=== PATIENT | male | born 2000 | race Caucasian/White ===

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

== ENCOUNTER 2022-02-23 19:15 | Emergency (ER) | payer MEDICAID, SELFPAY ==
--- NOTE | ~2022-02-23 | XR_ITS ---
EXAMINATION: XR CHEST CLINICAL INFORMATION: Cough, fever COMPARISON: None TECHNIQUE: Frontal view of the chest was obtained. FINDINGS: No significant abnormality is noted involving the heart, lungs, mediastinum, bony thorax or soft tissues. XR/XR chest 1V IMPRESSION: Unremarkable examination.
[2022-02-23 19:29] VITALS: BP 134/70; PULSE 114; RESP 20; TEMP 39.2; O2SAT 95; BMI 30.7
--- NOTE | 2022-02-23 19:31 | ED.FEVER ---
HPI - Fever General Chief Complaint: Upper Respiratory Symptoms <IZABEL Biswas - Last Filed: 02/23/22 19:33> Stated Complaint: cough <IZABEL Biswas - Last Filed: 02/23/22 19:33> Time Seen by Provider: 02/23/22 19:54 <IZABEL Biswas - Last Filed: 02/23/22 19:33> Related Data Home Medications: Previous Rx's Medication Instructions Recorded ibuprofen 600 mg tablet 600 mg PO TID PRN fever #14 tabs 02/23/22 oseltamivir 75 mg capsule (Tamiflu) 75 mg PO DAILY #10 caps 02/23/22 <IZABEL Biswas - Last Filed: 02/23/22 19:33> Allergies/Adverse Reactions: Allergies Allergy/AdvReac Type Severity Reaction Status Date / Time No Known Allergies Allergy Verified 02/23/22 19:30 <IZABEL Biswas - Last Filed: 02/23/22 19:33> [facility] Social History Social History: Social History Advance Directives: No Advance Directives Information Provided: No <IZABEL Biswas - Last Filed: 02/23/22 19:33> Physical Exam Vital Signs: Vital Signs: Last Vital Signs Temp 102.5 F H 02/23/22 19:29 Pulse 114 H 02/23/22 19:29 Resp 20 02/23/22 19:29 BP 134/70 02/23/22 19:29 Pulse Ox 95 02/23/22 19:29 O2 Del Method 02/23/22 19:29 BMI result Body Mass Index 30.7 <IZABEL Biswas - Last Filed: 02/23/22 19:33> Vital Signs: Last Vital Signs Temp 102.5 F H 02/23/22 19:29 Pulse 114 H 02/23/22 19:29 Resp 20 02/23/22 19:29 BP 134/70 02/23/22 19:29 Pulse Ox 95 02/23/22 19:29 O2 Del Method 02/23/22 19:29 BMI result Body Mass Index 30.7 <Andra Jacobs MD - Last Filed: 02/23/22 21:50> Course Course Course Narrative: 19:31 - RME - 21 yo healthy male presents to the ER for evaluation of fever 101.6, nasal congestion, sore throat and cough that started today. No known sick contacts. UTD on vaccinations. Took tylenol earlier. Febrile to 102.5 in triage, nontoxic appearing. Will check viral swab and strep. motrin ordered. <IZABEL Biswas - Last Filed: 02/23/22 19:33> 19:31 - RME - 21 yo healthy male presents to the ER for evaluation of fever 101.6, nasal congestion, sore throat and cough that started today. No known sick contacts. UTD on vaccinations. Took tylenol earlier. Febrile to 102.5 in triage, nontoxic appearing. Will check viral swab and strep. motrin ordered. Patient tested positive for influenza A. Patient is within the window of treatment, less than 24 hours of symptoms. Patient is a good candidate for Tamiflu. <Andra Jacobs MD - Last Filed: 02/23/22 21:50> Medications Administered Discontinued Medications Generic Name Dose Route Start Last Admin Trade Name Freq PRN Reason Stop Dose Admin Ibuprofen 600 mg 02/23/22 19:31 02/23/22 20:44 Ibuprofen 600 Mg Tablet PO 02/23/22 19:32 600 mg ONCE ONE Administration <IZABEL Biswas - Last Filed: 02/23/22 19:33> Medications Administered Discontinued Medications Generic Name Dose Route Start Last Admin Trade Name Freq PRN Reason Stop Dose Admin Ibuprofen 600 mg 02/23/22 19:31 02/23/22 20:44 Ibuprofen 600 Mg Tablet PO 02/23/22 19:32 600 mg ONCE ONE Administration <Andra Jacobs MD - Last Filed: 02/23/22 21:50> Medical Decision Making Differential Diagnosis Differential Diagnoses: The differential diagnosis associated with the presentation includes (COVID, influenza, RSV, pneumonia) <Andra Jacobs MD - Last Filed: 02/23/22 21:50> Lab Data MDM Lab Attestation statement: I reviewed the patient's lab results. <Andra Jacobs MD - Last Filed: 02/23/22 21:50> Labs: Lab Results 02/23/22 02/23/22 Range/Units 19:33 19:33 Influenza Type A (PCR) POSITIVE A (Negative) Influenza Type B (PCR) NEGATIVE (Negative) RSV RNA Qual (PCR) NEGATIVE (Negative) SARS-CoV-2 RNA (RT-PCR) NEGATIVE (Negative) S. pyogenes GrpA GAVINO Negative (Negative) <IZABEL Biswas - Last Filed: 02/23/22 19:33> Lab Results 02/23/22 02/23/22 Range/Units 19:33 19:33 Influenza Type A (PCR) POSITIVE A (Negative) Influenza Type B (PCR) NEGATIVE (Negative) RSV RNA Qual (PCR) NEGATIVE (Negative) SARS-CoV-2 RNA (RT-PCR) NEGATIVE (Negative) S. pyogenes GrpA GAVINO Negative (Negative) <Andra Jacobs MD - Last Filed: 02/23/22 21:50> Discharge Plan Discharge Clinical Impression: Influenza A <IZABEL Biswas - Last Filed: 02/23/22 19:33> Patient Disposition: Home, Self-Care <IZABEL Biswas - Last Filed: 02/23/22 19:33> Instructions: Influenza (ED) <IZABEL Biswas - Last Filed: 02/23/22 19:33> Additional Instructions: Please follow-up with your primary care physician tomorrow. If you have any worsening or new symptoms, please return to the emergency room or call 911 <IZABEL Biswas - Last Filed: 02/23/22 19:33> Prescriptions: New oseltamivir [Tamiflu] 75 mg capsule 75 mg PO DAILY Qty: 10 0RF ibuprofen 600 mg tablet 600 mg PO TID PRN (Reason: fever) Qty: 14 0RF <IZABEL Biswas - Last Filed: 02/23/22 19:33> Stand Alone Forms: Work/School Release <IZABEL Biswas - Last Filed: 02/23/22 19:33>
[2022-02-23 20:11] LABS: Strep A Nucleic Acid Negative (Negative)
[2022-02-23 20:20] LABS: Influenza A PCR POSITIVE (Negative); Influenza B PCR NEGATIVE (Negative); Resp Syncy Virus RNA Qual PCR NEGATIVE (Negative); SARS COV2 PCR INHOUSE NEGATIVE (Negative)
[2022-02-23] MEDS: Ibuprofen 600 MG TABLET PO (20:44)
[2022-02-23 21:41] VITALS: TEMP 37.1
== END 2022-02-23 22:06 | disposition home or self-care (01) ==
PROVIDERS: Physician Assistant; Emergency Provider Emergency Medicine
DX: J10.1 Influenza due to other identified influenza virus with other respiratory manifestations (principal); R50.9 Fever, unspecified; R05.9 Cough, unspecified; Z20.822 Contact with and (suspected) exposure to COVID-19; Z79.899 Other long term (current) drug therapy
CPT/HCPCS: 0241U; 36415; 71045; 87651; 99283

== ENCOUNTER 2022-04-15 23:22 | Emergency (ER) | payer MEDICAID, SELFPAY ==
[2022-04-15 23:36] VITALS: BP 121/61; PULSE 64; RESP 16; TEMP 36.7; O2SAT 99; BMI 30.7
[2022-04-16 00:16] LABS: Hematocrit 46.3 % (42.0-52.0); Hemoglobin 15.6 g/dl (14.0-18.0); Mean Corpuscular HGB Conc 33.7 g/dl (31.0-36.0); Mean Corpuscular Hemoglobin 28.4 pg (27.0-33.0); Mean Corpuscular Volume 84.2 fL (80.0-98.0); Mean Platelet Volume 10.4 fL (9.4-12.4); Platelet Count 195 X10*3/uL (160-400); Red Cell Distribution Width 12.7 % (11.0-16.0); White Blood Count 7.2 X10*3/uL (4.8-10.8)
[2022-04-16 00:24] LABS: Lactic Acid 0.9 mmol/L (0.5-2.0)
[2022-04-16 00:28] LABS: Alanine Aminotransferase 60 U/L (0-40); Albumin Level 4.6 g/dL (3.5-5.0); Alkaline Phosphatase 53 U/L (39-117); Anion Gap 11 (12-20); Aspartate Amino Transferase 131 U/L (5-37); Bilirubin Total 0.8 mg/dL (0.0-1.0); Blood Urea Nitrogen 16 mg/dL (9-16); Calcium 9.7 mg/dL (8.4-10.2); Carbon Dioxide 28 mmol/L (22-29); Chloride 104 mmol/L (96-108); Creatinine Clr Calc Pharmacy 121.2; Estimated Glomerular Filt Rate > 60; Glucose Random 98 mg/dL (60-115); Sodium 139 mmol/L (135-145); Total Protein 7.3 g/dL (6.5-8.0)
--- NOTE | 2022-04-16 00:56 | ED.GENADULT ---
HPI - General Adult General Chief complaint: Animal Bite Stated complaint: spider bite Time Seen by Provider: 04/16/22 00:33 Source: patient Mode of arrival: ambulatory Limitations: no limitations History of Present Illness HPI narrative: Patient comes to the emergency room complaining of a spider bite to the left inner thigh 2 days ago. Patient states that over last 2 days, erythema has been getting bigger, more tender to palpation. Patient denies any fever chills. Patient states that initially when he noticed that his leg was erythematous, he tried poking and trying to drain any pus. However, nothing was expressed. Patient is unsure about his last tetanus shot. Patient denies IV drug abuse Related Data Previous Rx's Medication Instructions Recorded ibuprofen 600 mg tablet 600 mg PO TID PRN fever #14 tabs 02/23/22 oseltamivir 75 mg capsule (Tamiflu) 75 mg PO DAILY #10 caps 02/23/22 ibuprofen 400 mg tablet 400 mg PO Q8H PRN fever or pain 04/16/22 #20 tabs sulfamethoxazole 800 1 tab PO BID #14 tabs 04/16/22 mg-trimethoprim 160 mg tablet (Bactrim DS) Allergies Allergy/AdvReac Type Severity Reaction Status Date / Time No Known Allergies Allergy Verified 02/23/22 19:30 Review of Systems Review of Systems: Constitutional : No Weight loss, No Fever, No Chills, No Night Sweats, No Fatigue, No Malaise ENT/Mouth : No Hearing loss, No Ear Pain, No Nasal Congestion, No Sinus Pain, No Hoarseness, No sore throat, No Rhinorrhea, No Swallowing Difficulty Eyes: No Eye Pain, No Swelling, No Redness, No Foreign Body, No Discharge, No Vision Changes Cardiovascular : No Chest Pain, No SOB, No Dyspnea on Exertion, No Orthopnea, No Edema, No Palpitations Respiratory : No Cough, No Sputum, No Wheezing, No Smoke Exposure, No Dyspnea Gastrointestinal : No Nausea, No Vomiting, No Diarrhea, No Constipation, No abdominal Pain, No Hematochezia, No Melena Genitourinary : no irregular bleeding, No Dysuria, No Urinary Frequency, No Hematuria, No Urinary Incontinence, No Urgency, No Flank Pain, No Urinary Flow Changes, No Hesitancy Musculoskeletal : No joint pain, No Myalgias, No Joint Swelling Skin : Complaining of erythema/spider bite in the left inner thigh Neuro : No Weakness, No Numbness, No Paresthesias, No Loss of Consciousness, No Dizziness, No Headache Psych : No Anxiety/Panic, No Depression, No SI/HI/AH/VH, No Social Issues, Heme/Lymph: No Bruising, No Bleeding,No Lymphadenopathy Endocrine : No Polyuria, No Polydipsia, No Temperature Intolerance [facility] Social History Social History Advance Directives: No Physical Exam ED Vital Signs: Vital Signs - 24 hr 04/15/22 23:36 Temperature 98.0 F Pulse Rate 64 Respiratory Rate 16 Blood Pressure 121/61 Pulse Oximetry 99 Oxygen Delivery Method Room Air BMI result Body Mass Index 30.7 Const Other: Appearance: Alert. Oriented X3. No acute distress. Eyes: Pupils equal, round and reactive to light. ENT: Pharynx normal. Neck: Normal inspection. Neck supple. No lymph nodes noted. No crepitus CVS: Normal heart rate and rhythm. Pulses normal. Normal S1 and S2 Respiratory: No respiratory distress. Breath sounds normal. No Wheezing. No rales Abdomen: Soft and nontender. No rigidity. No distention. Skin: Skin warm and dry. In the left inner thigh, there is a 3 cm x 3 cm red plaque. Bedside ultrasound shows a small abscess approximately 0.5 cm deep Extremities: No lower extremity edema. No Lacerations. No Rash Neuro: Oriented X 3. No motor deficit. No sensory deficit. Moving all extremities. No slurred speech. CN 2 through 12 grossly intact Psych: calm, cooperative, normal affect Course Course Course Narrative: -I discussed the physical exam with the patient, patient agreeable to I&D. The skin over the central eschar is very soft, I was able to unroof it with a 16 gauge needle. Patient declined lidocaine for the procedure. After unroofing the lesion, approximately 1 mL of pus was expressed. -patient was given the 1st dose of Bactrim in the ED. -also, patient was given a Tdap booster Medical Decision Making Medical Decision Making [facility] Narrative: -patient's white blood cell count within normal limits. Lactic acid normal. Vitals are stable. Sepsis not suspected. -patient's AST and ALT are elevated, likely secondary to fatty liver. -alcoholism and IV drug abuse is not suspected Differential Diagnosis Differential Diagnoses: The differential diagnosis associated with the presentation includes (Abscess, cellulitis, insect bite) Lab Data [facility] Lab Attestation statement: I reviewed the patient's lab results. 04/16/22 00:05 04/16/22 00:05 Labs: Lab Results 04/16/22 04/16/22 04/16/22 Range/Units 00:05 00:05 00:05 WBC 7.2 (4.8-10.8) X10*3/uL RBC 5.50 (4.60-5.80) X10*6/uL Hgb 15.6 (14.0-18.0) g/dl Hct 46.3 (42.0-52.0) % MCV 84.2 (80.0-98.0) fL MCH 28.4 (27.0-33.0) pg MCHC 33.7 (31.0-36.0) g/dl RDW 12.7 (11.0-16.0) % Plt Count 195 (160-400) X10*3/uL MPV 10.4 (9.4-12.4) fL Absolute Nucleated RBC 0.000 (0.0-0.012) X10*3/uL Nucleated RBC % (auto) 0.0 (0.0-0.2) /100WBC Sodium 139 (135-145) mmol/L Potassium 4.0 (3.3-5.1) mmol/L Chloride 104 (96-108) mmol/L Carbon Dioxide 28 (22-29) mmol/L Anion Gap 11 L (12-20) BUN 16 (9-16) mg/dL Creatinine 1.16 (0.5-1.4) mg/dL Estim Creat Clear Calc 121.2 Estimated GFR > 60 Random Glucose 98 (60-115) mg/dL Lactic Acid 0.9 (0.5-2.0) mmol/L Calcium 9.7 (8.4-10.2) mg/dL Total Bilirubin 0.8 (0.0-1.0) mg/dL AST 131 H (5-37) U/L ALT 60 H (0-40) U/L Alkaline Phosphatase 53 (39-117) U/L Total Protein 7.3 (6.5-8.0) g/dL Albumin 4.6 (3.5-5.0) g/dL Discharge Plan Discharge Clinical Impression: Insect bite, Cellulitis and abscess of left lower extremity Patient Disposition: Home, Self-Care Instructions: Cellulitis (ED) Additional Instructions: Please follow-up with your primary care physician tomorrow. If you have any worsening or new symptoms, please return to the emergency room or call 911 Prescriptions: New sulfamethoxazole-trimethoprim [Bactrim DS] 800-160 mg tablet 1 tab PO BID Qty: 14 0RF ibuprofen 400 mg tablet 400 mg PO Q8H PRN (Reason: fever or pain) Qty: 20 0RF No Action oseltamivir [Tamiflu] 75 mg capsule 75 mg PO DAILY Qty: 10 0RF ibuprofen 600 mg tablet 600 mg PO TID PRN (Reason: fever) Qty: 14 0RF Stand Alone Forms: Work/School Release
[2022-04-16 01:46] VITALS: BP 125/54; PULSE 64; RESP 18; TEMP 36.7; O2SAT 100
[2022-04-16] MEDS: Sulfamethox/Trimeth 800/160 TABLET 1 TAB PO (01:59)
[2022-04-16] MEDS: Diphth,Pertus(ACell),Tet Adult 0.5 ML SYRINGE IM (02:00)
== END 2022-04-16 02:09 | disposition home or self-care (01) ==
PROVIDERS: Emergency Provider Emergency Medicine
DX: L03.116 Cellulitis of left lower limb (principal); L02.416 Cutaneous abscess of left lower limb; S70.362A Insect bite (nonvenomous), left thigh, initial encounter; W57.XXXA Bitten or stung by nonvenomous insect and other nonvenomous arthropods, initial encounter; Y93.9 Activity, unspecified; Y92.9 Unspecified place or not applicable; Y99.9 Unspecified external cause status
CPT/HCPCS: 36415; 80053; 83605; 85027; 87040; 90471; 90715; 99283; 99284

== ENCOUNTER 2022-04-16 16:57 | Emergency (ER) | payer MEDICAID, SELFPAY ==
[2022-04-16 17:01] VITALS: BP 128/65; PULSE 70; RESP 18; TEMP 36.8; O2SAT 99; BMI 33.3
--- NOTE | 2022-04-16 17:01 | ED.SKABFB ---
HPI - Skin/Abscess/Foreign Bdy General Chief complaint: Recheck/Abnormal Lab/Rx Stated complaint: seen 04/16 spider bite area is getting larger Time Seen by Provider: 04/16/22 17:02 Source: patient and family Mode of arrival: ambulatory Limitations: no limitations History of Present Illness HPI narrative: 22 yo male healthy here with concern for increasing redness outside of the marked line of the abscess he was seen 12hrs ago in this ER. Patient reports she received 1 dose of antibiotics last night in the emergency room and 1 this morning at 10:00. He is feeling overall improved. He denies any fevers. Related Data Previous Rx's Medication Instructions Recorded ibuprofen 600 mg tablet 600 mg PO TID PRN fever #14 tabs 02/23/22 oseltamivir 75 mg capsule (Tamiflu) 75 mg PO DAILY #10 caps 02/23/22 ibuprofen 400 mg tablet 400 mg PO Q8H PRN fever or pain 04/16/22 #20 tabs sulfamethoxazole 800 1 tab PO BID #14 tabs 04/16/22 mg-trimethoprim 160 mg tablet (Bactrim DS) Allergies Allergy/AdvReac Type Severity Reaction Status Date / Time No Known Allergies Allergy Verified 02/23/22 19:30 Review of Systems Review of Systems: Yes all other systems are reviewed and are negative Constitutional: Constitutional: Reports no additional constitutional complaints, Denies body ache(s), Denies chills, Denies fever(s), Denies headache(s) and Denies weakness Eyes: Eyes: Reports no additional eye complaints and Denies change in vision ENT: Reports system reviewed and no additional complaints, except as documented, Denies dizziness, Denies headache(s), Denies nasal congestion, Denies nasal discharge and Denies neck pain Cardiovascular: Cardiovascular: Reports no additional cardiovascular complaints, Denies chest pain, Denies leg edema and Denies dyspnea Respiratory: Respiratory: Reports no additional respiratory complaints, Denies cough and Denies dyspnea Gastrointestinal: Gastrointestinal: Reports no additional gastrointestinal complaints, Denies abdominal pain, Denies diarrhea, Denies nausea and Denies vomiting Genitourinary: Genitourinary: Denies urinary incontinence Musculoskeletal: Musculoskeletal: Reports no additional musculoskeletal complaints, Denies back pain, Denies arthralgias, Denies joint swelling, Denies neck pain, Denies numbness and Denies tingling Integumentary/Breasts: Skin/Breast: Reports system reviewed and no additional complaints, except as docu, Reports swelling, Reports erythema and Denies rash Neurologic: Reports system reviewed and no additional complaints, except as documented, Denies Abnormal speech present, Denies dizziness, Denies headache(s), Denies numbness, Denies tingling and Denies weakness PMFSH Past Medical History Attestation statement: The following information was validated with the patient. Source: old records reviewed and nursing notes reviewed Physical Exam Vital Signs: Vital Signs: Last Vital Signs Temp 98.3 F 04/16/22 17:01 Pulse 70 04/16/22 17:01 Resp 18 04/16/22 17:01 BP 128/65 04/16/22 17:01 Pulse Ox 99 04/16/22 17:01 O2 Del Method 04/16/22 17:01 BMI result Body Mass Index 33.3 Const: General: cooperative, healthy appearing, comfortable and no acute distress Orientation/consciousness: patient oriented x3 Limitations: no limitations HEENT: Head: Yes normal to inspection Ears: hearing grossly normal bilaterally General nose exam: Normal external nose present Face and sinus: Yes normal facial exam Mouth: Normal oral and palatal mucosa present Throat: Yes posterior oropharynx normal Eyes: General: appearance normal, both eyes and all related structures Pupils: Equal, round and reactive pupils present Neck: Neck: Yes normal visual inspection Chest: Chest palpation & inspection: normal inspection of the chest Resp: Effort & Inspection: normal respiratory effort Auscultation: clear to auscultation bilaterally Cardio: Rate: regular rate Rhythm: regular rhythm Peripheral pulses: Peripheral pulses 2+ throughout GI: Inspection: Yes normal to inspection Palpation (GI): Soft to palpation and nontender Auscultation: normal bowel sounds Back/Spine/Pelvis: Thoracic/Lumbar Spine: thoracic and lumbar spine normal to inspection Skin: General skin exam: no rashes or lesions noted Neuro: General: patient oriented x3, no focal motor deficits and normal sensation to monofilament Cranial nerves: Yes Equal, round and reactive pupils present Cognition (Neuro): normal cognition Speech: No Abnormal speech present Gait exam (Neuro): Normal gait present Motor exam (neuro): 5/5 motor strength present throughout Extrem: General: Yes normal to inspection Elbow/forearm/wrist images: 1. +circular area of erythema with a clear line surrounding it. There is one small area of redness which extends approximately 1 inch outside of the marked line Course Course Course Narrative: This is a rapid medical exam. Deferred additional HPI, ROS, PE to primary provider. Medical Decision Making Medical Decision Making [facility] Narrative: 22-year-old male here for wound check. Patient reports seen here yesterday and diagnosed with abscess and started on antibiotics. The area was marked with a skin marker and he is here because he is current certain there is a small area that is extending outside of the marked lines. Overall he is feeling much better and denies any fevers or chills. He has taken 2 doses of antibiotics total. On exam there is a area of redness to the medial left thigh the area is marked with a skin marker. There was a very small area that extends out from the marked line. This is quite minor. I explained this to the patient. Recommend he continue antibiotics, ibuprofen for pain, warm soaks. Reviewed worrisome signs and symptoms of when to return to the emergency room. Comfortable for discharge home Differential Diagnosis Differential Diagnoses: The differential diagnosis associated with the presentation includes Cellulitis Discharge Plan Discharge Clinical Impression: Insect bite, Cellulitis and abscess of left lower extremity Patient Disposition: Home, Self-Care Instructions: Cellulitis (ED) Additional Instructions: Continue your antibiotics warm compreses to the area return for fever >100.4, increasing redness/swelling Prescriptions: No Action oseltamivir [Tamiflu] 75 mg capsule 75 mg PO DAILY Qty: 10 0RF ibuprofen 600 mg tablet 600 mg PO TID PRN (Reason: fever) Qty: 14 0RF sulfamethoxazole-trimethoprim [Bactrim DS] 800-160 mg tablet 1 tab PO BID Qty: 14 0RF ibuprofen 400 mg tablet 400 mg PO Q8H PRN (Reason: fever or pain) Qty: 20 0RF Referrals: [facility] [Primary Care Provider] -
== END 2022-04-16 17:15 | disposition home or self-care (01) ==
PROVIDERS: Emergency Provider Emergency Medicine
DX: L03.116 Cellulitis of left lower limb (principal); L02.416 Cutaneous abscess of left lower limb; S70.362D Insect bite (nonvenomous), left thigh, subsequent encounter; W57.XXXD Bitten or stung by nonvenomous insect and other nonvenomous arthropods, subsequent encounter
CPT/HCPCS: 99282; 99284

== ENCOUNTER 2023-09-27 22:28 | Emergency (ER) | payer MEDICAID, SELFPAY ==
[2023-09-27 22:40] VITALS: BP 143/75; PULSE 99; RESP 18; TEMP 37; O2SAT 96; BMI 33.2
--- NOTE | 2023-09-27 23:14 | ED.GENADULT ---
HPI - General Adult General Chief complaint: Skin/Abscess/Foreign Body Stated complaint: ? spider bite right leg Time Seen by Provider: 09/27/23 23:14 History of Present Illness ED Provider: Breanne HILTON narrative: The patient is a 23-year-old male who is generally in good health. He says that couple of days ago he scratched a mole or other longstanding skin irregularity on his right anterior thigh. He has subsequently developed a lot of redness around the site. He comes to the emergency room for evaluation of this problem. He has had no fever, sweats, chills. He has no history of tick bites. He has not often in the mora. He does not have any pets. He does not consider himself at risk for tick bites. Related Data Previous Rx's ?Medication ?Instructions ?Recorded ibuprofen 600 mg tablet 600 mg PO TID PRN fever #14 tabs 02/23/22 oseltamivir 75 mg capsule (Tamiflu) 75 mg PO DAILY #10 caps 02/23/22 ibuprofen 400 mg tablet 400 mg PO Q8H PRN fever or pain 04/16/22 #20 tabs sulfamethoxazole 800 1 tab PO BID #14 tabs 04/16/22 mg-trimethoprim 160 mg tablet (Bactrim DS) doxycycline monohydrate 100 mg 100 mg PO BID #20 caps 09/27/23 capsule Allergies Allergy/AdvReac Type Severity Reaction Status Date / Time pollen extracts Allergy Unknown Verified 09/27/23 22:45 Review of Systems Review of Systems: Yes all other systems are reviewed and are negative [facility] Social History Social History (System 07/14/23 @ 09:03 by Mary Anne Terviño) Alcohol intake: never Advance Directives: No Advance Directives Information Provided: No Physical Exam ED Vital Signs: Vital Signs - 24 hr 09/27/23 22:40 Temperature 98.6 F Pulse Rate 99 Respiratory Rate 18 Blood Pressure 143/75 H Pulse Oximetry 96 Oxygen Delivery Method Room Air BMI result Body Mass Index 33.2 Const Other: The patient is awake, alert, pleasant, cooperative. The patient does not appear in overt distress. HENMT Other: Face is symmetrical, mucous membranes moist. Eyes Other: Pupils are round equal, conjunctivae are clear Resp Effort & Inspection: normal respiratory effort Skin Other: There is an area of erythema on the right anterior thigh. There is a mole-like prominence which seems to have a small black scab on it. The erythema is somewhat in the shape of an oval but the edges of the erythema are fairly irregular. No significant tenderness. No fluctuance. Neuro Other: The patient is awake and alert with a normal mental status and seems grossly neurologically intact. Extrem Other: The patient has an area of erythema to the right posterior thigh but there is no swelling to the leg. Medical Decision Making Medical Decision Making [facility] Narrative: Patient has what I think is patch of cellulitis on his right anterior thigh that probably is a result of scratching a nevus-like prominence. The patient thought this might be a spider bite. I think that is a less likely mechanism. The somewhat oval shape of the erythema made me think about Lyme disease but borders of the erythema are quite irregular and I think Lyme disease is less likely as well. The patient will be placed on 10 days of doxycycline 100 mg b.i.d.. He should return if worse. Discharge Plan Discharge Clinical Impression: Cellulitis of right thigh Patient Disposition: Home, Self-Care Instructions: Cellulitis (ED) Additional Instructions: I believe that the redness on your right thigh is a skin infection. We call this kind of infection ?cellulitis.? This infection probably resulted from scratching the bump on your skin in this area. I doubt it is a spider bite. Although the redness looks a little bit like the redness that can be seen with Lyme disease I do not think this is likely to be Lyme disease. You have been started on an antibiotic called doxycycline. Please take this antibiotic 2 times a day. Please complete the whole course. Doxycycline can predispose a person to a bad sunburn. Try to stay out of the sun while you are on the doxycycline. Also make sure to drink lot of fluids after each dose of doxycycline. Please follow up with your regular doctor's office later this month as scheduled. If at any point you feel you are getting significantly worse please return to the emergency room for further evaluation. Prescriptions: New doxycycline monohydrate 100 mg capsule 100 mg PO BID Qty: 20 0RF No Action oseltamivir [Tamiflu] 75 mg capsule 75 mg PO DAILY Qty: 10 0RF ibuprofen 600 mg tablet 600 mg PO TID PRN (Reason: fever) Qty: 14 0RF sulfamethoxazole-trimethoprim [Bactrim DS] 800-160 mg tablet 1 tab PO BID Qty: 14 0RF ibuprofen 400 mg tablet 400 mg PO Q8H PRN (Reason: fever or pain) Qty: 20 0RF Referrals: [facility] [Provider Group] Print Language: Setswana
[2023-09-28] MEDS: Doxycycline Monohydrate 100 MG CAPSULE PO (00:11)
[2023-09-28 00:57] VITALS: BP 129/76; PULSE 74; RESP 18; TEMP 36.8; O2SAT 98
== END 2023-09-28 00:15 | disposition home or self-care (01) ==
PROVIDERS: Emergency Provider Emergency Medicine
DX: L03.115 Cellulitis of right lower limb (principal); Z79.899 Other long term (current) drug therapy
CPT/HCPCS: 99283; 99284